=== PATIENT | male | born 1985 | race Caucasian/White ===

== ENCOUNTER 2017-04-15 07:29 | Emergency (ER) | payer OTHER ==
[~2017-04-15] VITALS: Ht 182.9 cm; Wt 113.0 kg
[2017-04-15 07:31] VITALS: BP 148/93; PULSE 83; RESP 18; TEMP 98.9; O2SAT 98
[2017-04-15 07:52] VITALS: BP_SYST 116; BP_SYST 145; BP_DIAS 59; BP_DIAS 78; PULSE 86; RESP 18; O2SAT 98
--- NOTE | 2017-04-15 07:55 | PD ---
HPI Chief Complaint: Cardiac Complaint Time Seen by Provider: 07:46 Travel History International Travel<30 days: No Contact w/Intl Traveler<30days: No Traveled to known affect area: No History of Present Illness HPI The patient is a 31-year-old male who presents emergency department for palpitations, pleuritic chest pain, and mild shortness of breath. The patient states his symptoms started yesterday with some substernal pleuritic chest pain , worse with inspiration, alleviated at rest. The pain is sharp, pleuritic, and nonradiating. The patient also complains of some intermittent shortness of breath with a pleuritic chest pain and complains palpitations. The patient states his heart rate is very between 88 112 when he has taken his pulse. The patient states he felt warm at home but has not checked his temperature with a thermometer. The patient denies any sore throat, cough, nausea, vomiting, diarrhea, abdominal pain, myalgias, or arthralgias. The patient denies any history of pulmonary embolism, DVT, recent hospitalizations, recent surgeries, recent prolonged travel. Symptoms are moderate, worse with inspiration, mildly alleviated at rest. PFSH Past Medical History Narrative Medical Asthma Past Surgical History Surgical History: No Previous Surgery Social History Tobacco Use: No Allergies-Medications (Allergen,Severity, Reaction): Coded Allergies: No Known Allergies (Unverified , 04/15/17) Reported Meds & Prescriptions Reported Meds & Active Scripts Active No Active Prescriptions or Reported Medications Review of Systems Except as stated in HPI: all other systems reviewed are Neg General / Constitutional: Positive: Fever (subjective) HENT: Positive: Headaches, No: Sore Throat Cardiovascular: Positive: Chest Pain or Discomfort, Palpitations, Tachycardia Respiratory: Positive: Shortness of Breath, Pleuritic Pain, No: Cough Gastrointestinal: No: Nausea, Vomiting, Abdominal Pain Musculoskeletal: No: Myalgias, Arthralgias Skin: No Rash Physical Exam Narrative GENERAL: Awake, alert, pleasant 31-year-old male who appears his stated age and is in no acute respiratory distress. SKIN: Focused skin assessment warm/dry. HEAD: Atraumatic. Normocephalic. EYES: Pupils equal and round. No scleral icterus. No injection or drainage. ENT: No nasal bleeding or discharge. Mucous membranes pink and moist. Minimal erythema posterior oropharynx, no exudate. NECK: Trachea midline. No JVD. CARDIOVASCULAR: Regular rate and rhythm. No murmur appreciated. Heart rate in the 90s. Palpation the chest wall does not reproduce symptoms. RESPIRATORY: No accessory muscle use. Clear to auscultation. Breath sounds equal bilaterally. GASTROINTESTINAL: Abdomen soft, non-tender, nondistended. No rebound tenderness. MUSCULOSKELETAL: No obvious deformities. No clubbing. No cyanosis. No edema. NEUROLOGICAL: Awake and alert. No obvious cranial nerve deficits. Motor grossly within normal limits. Normal speech. PSYCHIATRIC: Appropriate mood and affect; insight and judgment normal. Data Data Last Documented VS Vital Signs Date Time Temp Pulse Resp B/P Pulse Ox O2 Delivery O2 Flow Rate FiO2 04/15/17 08:59 97.8 88 18 125/67 98 Room Air Orders Electrocardiogram (04/15/17 07:50) Ckmb (Isoenzyme) Profile (04/15/17 07:50) Complete Blood Count With Diff (04/15/17 07:50) Comprehensive Metabolic Panel (04/15/17 07:50) D-Dimer (04/15/17 07:50) Magnesium (Mg) (04/15/17 07:50) Prothrombin Time / Inr (Pt) (04/15/17 07:50) Act Partial Throm Time (Ptt) (04/15/17 07:50) Troponin I (04/15/17 07:50) Lipase (04/15/17 07:50) Chest, Single Ap (04/15/17 07:50) Ecg Monitoring (04/15/17 07:50) Bilateral Bp Monitoring (04/15/17 07:50) Iv Access Insert/Monitor (04/15/17 07:50) Oximetry (04/15/17 07:50) Oxygen Administration (04/15/17 07:50) Aspirin Chew (Aspirin Chew) (04/15/17 08:00) Sodium Chloride 0.9% Flush (Ns Flush) (04/15/17 08:00) Sodium Chlor 0.9% 1000 Ml Inj (Ns 1000 M (04/15/17 08:00) Ct Pulmonary Angiogram (04/15/17 ) CKMB (04/15/17 07:55) CKMB% (04/15/17 07:55) Iohexol 350 Inj (Omnipaque 350 Inj) (04/15/17 09:19) Labs Laboratory Tests Test 04/15/17 07:55 White Blood Count 14.3 TH/MM3 Red Blood Count 5.13 MIL/MM3 Hemoglobin 14.6 GM/DL Hematocrit 43.3 % Mean Corpuscular Volume 84.3 FL Mean Corpuscular Hemoglobin 28.5 PG Mean Corpuscular Hemoglobin 33.8 % Concent Red Cell Distribution Width 12.6 % Platelet Count 243 TH/MM3 Mean Platelet Volume 8.3 FL Neutrophils (%) (Auto) 69.9 % Lymphocytes (%) (Auto) 21.6 % Monocytes (%) (Auto) 7.4 % Eosinophils (%) (Auto) 0.6 % Basophils (%) (Auto) 0.5 % Neutrophils # (Auto) 10.0 TH/MM3 Lymphocytes # (Auto) 3.1 TH/MM3 Monocytes # (Auto) 1.1 TH/MM3 Eosinophils # (Auto) 0.1 TH/MM3 Basophils # (Auto) 0.1 TH/MM3 CBC Comment DIFF FINAL Differential Comment Prothrombin Time 12.0 SEC Prothromb Time International 1.1 RATIO Ratio Activated Partial 29.1 SEC Thromboplast Time D-Dimer Quantitative (PE/DVT) 0.53 MG/L FEU Sodium Level 137 MEQ/L Potassium Level 3.8 MEQ/L Chloride Level 104 MEQ/L Carbon Dioxide Level 26.6 MEQ/L Anion Gap 6 MEQ/L Blood Urea Nitrogen 12 MG/DL Creatinine 1.23 MG/DL Estimat Glomerular Filtration 69 ML/MIN Rate Random Glucose 89 MG/DL Calcium Level 8.9 MG/DL Magnesium Level 2.0 MG/DL Total Bilirubin 0.9 MG/DL Aspartate Amino Transf 17 U/L (AST/SGOT) Alanine Aminotransferase 26 U/L (ALT/SGPT) Alkaline Phosphatase 76 U/L Total Creatine Kinase 138 U/L Creatine Kinase MB LESS THAN 0.5 NG/ML Troponin I LESS THAN 0.02 NG/ML Total Protein 7.8 GM/DL Albumin 3.9 GM/DL Lipase 99 U/L [facility] Medical Decision Making Medical Screen Exam Complete: Yes Emergency Medical Condition: Yes Medical Record Reviewed: Yes Interpretation(s) EKG reveals RSR prime in V1 with QRS interval of 108 ms consistent with incomplete right bundle branch block. Nonspecific T wave changes. Laboratory Tests Test 04/15/17 07:55 White Blood Count 14.3 TH/MM3 Red Blood Count 5.13 MIL/MM3 Hemoglobin 14.6 GM/DL Hematocrit 43.3 % Mean Corpuscular Volume 84.3 FL Mean Corpuscular Hemoglobin 28.5 PG Mean Corpuscular Hemoglobin 33.8 % Concent Red Cell Distribution Width 12.6 % Platelet Count 243 TH/MM3 Mean Platelet Volume 8.3 FL Neutrophils (%) (Auto) 69.9 % Lymphocytes (%) (Auto) 21.6 % Monocytes (%) (Auto) 7.4 % Eosinophils (%) (Auto) 0.6 % Basophils (%) (Auto) 0.5 % Neutrophils # (Auto) 10.0 TH/MM3 Lymphocytes # (Auto) 3.1 TH/MM3 Monocytes # (Auto) 1.1 TH/MM3 Eosinophils # (Auto) 0.1 TH/MM3 Basophils # (Auto) 0.1 TH/MM3 CBC Comment DIFF FINAL Differential Comment Prothrombin Time 12.0 SEC Prothromb Time International 1.1 RATIO Ratio Activated Partial 29.1 SEC Thromboplast Time D-Dimer Quantitative (PE/DVT) 0.53 MG/L FEU Sodium Level 137 MEQ/L Potassium Level 3.8 MEQ/L Chloride Level 104 MEQ/L Carbon Dioxide Level 26.6 MEQ/L Anion Gap 6 MEQ/L Blood Urea Nitrogen 12 MG/DL Creatinine 1.23 MG/DL Estimat Glomerular Filtration 69 ML/MIN Rate Random Glucose 89 MG/DL Calcium Level 8.9 MG/DL Magnesium Level 2.0 MG/DL Total Bilirubin 0.9 MG/DL Aspartate Amino Transf 17 U/L (AST/SGOT) Alanine Aminotransferase 26 U/L (ALT/SGPT) Alkaline Phosphatase 76 U/L Total Creatine Kinase 138 U/L Creatine Kinase MB LESS THAN 0.5 NG/ML Troponin I LESS THAN 0.02 NG/ML Total Protein 7.8 GM/DL Albumin 3.9 GM/DL Lipase 99 U/L Last Impressions Chest X-Ray 04/15/17 0750 Signed Impressions: Service Date/Time: Saturday, April 15, 2017 07:59 - CONCLUSION: No acute disease. Sree Campos MD CT pulmonary angiogram reveals no pulmonary embolus is identified. The exam demonstrates a 1.4 x 2.3 cm node in the subcarinal region on the right. There is some subtle soft tissue fullness in the right hilar as compared to the left. These changes are nonspecific and her likely inflammatory in a patient of this age, however, would recommend this patient undergo follow-up examination in 6 months to document stability/resolution. Differential Diagnosis Differential diagnoses includes pericarditis, myocarditis, pleurisy, pneumonia, pulmonary embolism, acute coronary syndrome, viral syndrome. Narrative Course IV was established, labs are drawn and sent, and the patient was placed on cardiac telemetry monitoring and continuous pulse oximetry monitoring. EKG was ordered and interpreted. Chest x-ray was obtained. The patient was administered aspirin 162 mg orally. D-dimer was sent to lab. Chest x-ray was negative. However, d-dimer was positive, therefore, CT pulmonary angiogram was ordered. Patient's troponin and CPK are unremarkable. White count is minimally elevated at 14.3. CT pulmonary angiogram reveals no PE, does demonstrate a 1.4 x 2 point centimeter node in the subcarinal region on the right with some subtle soft tissue fullness in the right hilus compared to left. These changes are nonspecific and her likely inflammatory a patient of this age. Therefore, patient will be placed on Zithromax, is advised to have a repeat CT of the thorax in 6 months with his primary physician. The patient will be provided a copy of his labs, x-ray results, and CT results at discharge. Diagnosis Primary Impression: Pleuritic chest pain Additional Impression: Lymphadenopathy, hilar Patient Instructions: General Instructions Additional Instructions: Medications as directed. Follow-up with your primary physician. Please provide the patient a copy of his CT results and lab results at discharge. Repeat CT of the thorax in 6 months. Med/Other Pt SpecificInfo: Prescription(s) given Scripts Azithromycin (Zithromax Z-[place])250 Mg [id number] Mg PO DIRECTED #1 DSPK Ref 0 500 MG (2 tabs) day 1, then 1 tab days 2-5. Prov:Kam Colon MD 04/15/17 Disposition: 01 DISCHARGE HOME Condition: Stable Kam Colon MD April 15, 2017 07:54
[2017-04-15] MEDS ORDERED: SODIUM CHLOR 0.9% 1000 ML INJ 1,000 ML IV ONE (08:00)
[2017-04-15] MEDS ORDERED: ASPIRIN 81 MG CHEW TAB PO ONE (08:00)
[2017-04-15] MEDS ORDERED: SODIUM CHLORIDE 0.9% FLUSH 10 ML FLUSH IVF PRN (08:00)
[2017-04-15 08:11] LABS: BASOPHIL # 0.1 TH/MM3 (0-0.2); BASOPHIL % 0.5 % (0.0-2.0); EOSINOPHIL # 0.1 TH/MM3 (0-0.4); EOSINOPHIL % 0.6 % (0.0-4.0); HEMATOCRIT 43.3 % (39.0-51.0); HEMO FLAGS DIFF FINAL; LYMPH % 21.6 % (9.0-44.0); LYMPHOCYTE # 3.1 TH/MM3 (1.0-4.8); MEAN CELL VOLUME 84.3 FL (80.0-100.0); MEAN CORPUSCULAR HEMOGLOBIN 28.5 PG (27.0-34.0); MEAN CORPUSCULAR HGB CONC 33.8 % (32.0-36.0); MONO % 7.4 % (0.0-8.0); NEUT % 69.9 % (16.0-70.0); PLATELET COUNT 243 TH/MM3 (150-450); RED BLOOD COUNT 5.13 MIL/MM3 (4.50-5.90); RED CELL DISTRIBUTION WIDTH 12.6 % (11.6-17.2); WHITE BLOOD COUNT 14.3 TH/MM3 (4.0-11.0)
[2017-04-15 08:22] LABS: APTT (PATIENT) 29.1 SEC (24.3-30.1); INTERNATIONAL NORMALIZED RATIO 1.1 RATIO
--- NOTE | 2017-04-15 08:26 | RADRPT ---
EXAM DATE/TIME: 04/15/2017 07:59 [facility] COMPARISON: No previous studies available for comparison. INDICATIONS : Chest pain, shortness of breath, increased heart rate. MEDICAL HISTORY : None. SURGICAL HISTORY : None. ENCOUNTER: Initial ACUITY: 2 days PAIN SCORE: 5/10 LOCATION: Bilateral chest FINDINGS: A single view of the chest demonstrates the lungs to be symmetrically aerated without evidence of mas s, infiltrate or effusion. The cardiomediastinal contours are unremarkable. Osseous structures are intact. CONCLUSION: No acute disease. Sree Campos MD on April 15, 2017 at 8:24 Board Certified Radiologist. This report was verified electronically.
[2017-04-15 08:28] LABS: ALT (GPT) 26 U/L (12-78); ANION GAP 6 MEQ/L (5-15); AST (GOT) 17 U/L (15-37); BICARBONATE 26.6 MEQ/L (21.0-32.0); BLOOD UREA NITROGEN 12 MG/DL (7-18); CHLORIDE 104 MEQ/L (98-107); GLOMERULAR FILTRATION RATE 69 ML/MIN (>89); POTASSIUM 3.8 MEQ/L (3.5-5.1); SODIUM (NA) 137 MEQ/L (136-145)
[2017-04-15 08:31] LABS: ALKALINE PHOSPHATASE 76 U/L (45-117); CREATINE KINASE 138 U/L (39-308); TOTAL BILIRUBIN ADULT 0.9 MG/DL (0.2-1.0)
[2017-04-15 08:44] LABS: CKMB LESS THAN 0.5 NG/ML (0.5-3.6)
[2017-04-15 08:59] VITALS: BP 125/67; PULSE 88; RESP 18; TEMP 97.8; O2SAT 98
[2017-04-15] MEDS ORDERED: IOHEXOL 350 MG/ML 10 ML VIAL (for RAD DIAG) IV ONE (09:19)
--- NOTE | 2017-04-15 09:39 | RADRPT ---
EXAM DATE/TIME: 04/15/2017 09:09 [facility] COMPARISON: No previous studies available for comparison. INDICATIONS : Chest pain along with short of breath. Evaluate for pulmonary emoblism. IV CONTRAST: 74 cc Omnipaque 350 (iohexol) IV RADIATION DOSE: 4.66 CTDIvol (mGy) MEDICAL HISTORY : None SURGICAL HISTORY : None. ENCOUNTER: Initial ACUITY: 2 days PAIN SCALE: 4/10 LOCATION: chest TECHNIQUE: Volumetric scanning of the chest was performed using a pulmonary embolism protocol MIP images were re constructed. Using automated exposure control and adjustment of the mA and/or kV according to patien t size, radiation dose was kept as low as reasonably achievable to obtain optimal diagnostic quality images. FINDINGS: The examination is of good diagnostic quality. No pulmonary embolus is identified. The thoracic aorta is intact. It is normal in caliber. The exam demonstrates a 2.4 x 1.4 cm node in the subcarinal region on the right. There is some subtle soft tissue fullness of the right meron. This is nonspecific in appearance. Followup to ensure this r esolves would be warranted. No other significant adenopathy is seen. No pericardial effusion is prese nt. The pulmonary parenchyma is clear. There is no pleural effusion. The visualized portions of upper abdomen are unremarkable. CONCLUSION: 1. No pulmonary embolus is identified. 2. The exam demonstrates a 1.4 x 2.3 cm node in the subcarinal region on the right. There is some sub tle soft tissue fullness in the right meron as compared to the left. These changes are nonspecific and are likely inflammatory in a patient of this age however, I would recommend this patient undergo a f ollow up examination in 6 months to document stability/resolution. Yvan Kay MD on April 15, 2017 at 9:30 Board Certified Radiologist. This report was verified electronically.
[2017-04-15] MEDS ORDERED: ZITHTAB PO (09:47)
[2017-04-15 09:50] VITALS: BP 128/71; TEMP 97.8
--- NOTE | 2017-04-16 11:20 | EKG ---
Date Performed: 04/15/2017 Time Performed: 07:52:48 PTAGE: 31 years EKG: Sinus rhythm INCOMPLETE RIGHT BUNDLE BRANCH BLOCK NONSPECIFIC ST ELEVATION BORDERLINE ECG NO PREVIOUS TRACING DOCTOR: Vamshi Jimenez Interpretating Date/Time 04/16/2017 11:18:15
== END 2017-04-15 09:50 | disposition home or self-care (01) ==
LOC: NEPE 07:29
DX: R07.81 Pleurodynia (principal); R59.0 Localized enlarged lymph nodes; R94.31 Abnormal electrocardiogram [ECG] [EKG]
CPT/HCPCS: 71010; 71275; 80053; 82550; 82552; 83690; 83735; 84484; 85025; 85379; 85610; 85730; 93005; 96360; 99285; J7030; Q9967